=== PATIENT | male | born 1975 | race Caucasian/White ===

== ENCOUNTER 2021-08-06 14:46 | Emergency (ER) | payer BC, SELFPAY ==
--- NOTE | 2021-08-06 14:55 | ED.HA ---
HPI - Headache General Chief Complaint: Headache Stated Complaint: HICKS Time Seen by Provider: 08/06/21 15:10 Mode of arrival: ambulatory Limitations: no limitations History of Present Illness HPI Narrative: 46-year-old male presents with concern for headache for 2 days. He reports he has history of similar headache in the past, however does not take medication for migraines. Reports headache is a 6/10 that is not the worst headache of his life. He denies thunderclap headache. He denies nausea or vomiting. He reports mild nasal congestion without rhinorrhea. He reports he has tried Sudafed and Excedrin Migraine, with mild temporary relief. Reports headache was milder when he woke up this morning but worsened throughout the day. He denies visual changes, reports light sensitivity. Denies weakness in any extremity, dysphasia or dysphagia MD elicited complaint: headache Related Data Home Medications Medication Instructions Recorded Confirmed atorvastatin [Lipitor] 20 mg PO DAILY 08/06/21 08/06/21 gabapentin 600 mg PO BID 08/06/21 08/06/21 lisinopril 10 mg PO DAILY 08/06/21 08/06/21 Allergies Allergy/AdvReac Type Severity Reaction Status Date / Time No Known Allergies Allergy Verified 08/06/21 15:18 Review of Systems Review of Systems: CONSTITUTIONAL: Denies malaise, chills, sweats, or fever. EYES: Denies visual changes, redness, or discharge. ENT: Denies rhinorrhea, sinus pain, otalgia or sore throat. Reports nasal congestion CARDIOVASCULAR: Denies chest pain, palpitations, or edema. RESPIRATORY: Denies cough or dyspnea. GASTROINTESTINAL: Denies nausea, vomiting MUSCULOSKELETAL: Denies myalgia. NEUROLOGIC: Denies numbness, weakness. Reports headache behind left eye with light sensitivity. All systems reviewed & are unremarkable except as noted in HPI and below PMFSH Comments At time of signature, agree with nursing past medical, surgical, social and family history. There is no relevant family history pertinent to the presenting complaint Exam Narrative: GENERAL: Well-appearing, well-nourished, and in no acute distress. HEAD: Normocephalic, atraumatic. EYES: PERRLA, sclera clear, and EOMI. No nystagmus. ENT: Nares clear, turbinates pink, no rhinorrhea or epistaxis. Mucous membranes moist. TM pearly de [place] with sharp light reflex bilaterally; no tragal tenderness. Oropharynx without erythema or lesions. Tonsils not enlarged and without exudate. NECK: Supple. No lymphadenopathy. No jugular venous distension, thyromegaly, or carotid bruits. Carotids were easily palpable bilaterally. CHEST: No respiratory distress. Clear to auscultation. No bony deformities, no asymmetry. Speaks in full sentences. HEART: Regular rate and rhythm. SKIN: Warm, dry, no visible rash. NEURO: Alert and oriented x3. No focal deficits. Cranial nerves II through XII grossly intact PSYCH: Normal mood and affect Course Course Emergency Course: Patient is aware of, understands and agrees to treatment plan. Anticipatory guidance given. Patient agrees to follow-up as directed and is aware of reasons to seek care at the emergency department. Portions of this record may have been created with voice recognition software Level of Care: Express Care Visit Vital Signs Vital signs: Reviewed. Patient reports history of hypertension MDM - Headache MDM Narrative Medical decision making narrative: The patient presents with an acute onset headache for 2 days in duration. Patient has no past history of headaches. There is not a history of anticoagulation, trauma, cancer or immunocompromised state. Mental status was normal, no neurological deficits were noted. Differential Diagnosis considered includes hypertensive emergency, subarachnoid hemorrhage, meningitis, trauma, CVA, migraine. Ketorolac IM was given, patient denies improvement of headache. Discussed with patient transfer to emergency room for further evaluation of headache and hypertension. Patient refuses
[2021-08-06 14:57] VITALS: BP 167/108; PULSE 108; RESP 16; TEMP 36.6; O2SAT 99
[2021-08-06] MEDS: KETOROLAC (*BKC) 60 MG/2 ML VIAL IM (15:26)
== END 2021-08-06 16:10 | disposition home or self-care (01) ==
PROVIDERS: Emergency Provider Nurse Practitioner
DX: R51.9 Headache, unspecified (principal); E78.00 Pure hypercholesterolemia, unspecified; I10 Essential (primary) hypertension
CPT/HCPCS: 96372; 99213; G0463; J1885